=== PATIENT | male | born 1945 | race Caucasian/White ===

== ENCOUNTER → 2017-12-23 | Outpatient (CLI) | payer MEDICARE ==
[~2017-12-23] MED LIST: ASPI1TAB57 PO; DIOV80TA4 PO; LEXA20TA PO; LIPI40TA PO; METF500T PO; METO-309 PO; TAMS5CAP PO; TRAM50TA PO
== END ==
LOC: CPRE 09:53
PROVIDERS: ATTEND Orthopaedic Surgery
DX: M17.11 Unilateral primary osteoarthritis, right knee (principal)

== ENCOUNTER 2018-01-01 08:28 | Inpatient (IN) | payer MEDICARE ==
[~2018-01-01] VITALS: Ht 177.8 cm; Wt 107.6 kg
[~2018-01-01 08:28] MED LIST changes: -TRAM50TA PO
[2018-01-01] MEDS ORDERED: DEXAMETHASONE SOD PHOS 20 MG/5 ML VIAL IV PUSH ONE (09:00)
[2018-01-01] MEDS ORDERED: SODIUM CHLORID 0.9% 500 ML IV PRN (09:15)
[2018-01-01] MEDS ORDERED: VANCOMYCIN 1 GM/200 ML PREMIX IV SCH (09:15)
[2018-01-01] MEDS ORDERED: POVIDONE IODINE 5% (ANTISEPSIS KIT) 4 APPLICATIONS EACH NARE PRN (09:15)
[2018-01-01] MEDS ORDERED: SODIUM CHLORIDE 0.9% IV SCH ×2 (09:15→14:45)
[2018-01-01] MEDS ORDERED: LACTATED RINGER'S 1000 ML IV PRN (09:15)
[2018-01-01] MEDS ORDERED: INSULIN HUMAN REGULAR 1,000 UNITS/10 ML VIAL SQ PRN (09:15)
[2018-01-01] MEDS ORDERED: POVIDONE IODINE 7.5% SCRUB 118 ML BOTTLE TOPICAL SCH (09:15)
[2018-01-01] MEDS ORDERED: CHLORHEXIDINE GLUCONATE 4% SOLN 120 ML BTL TOPICAL SCH (09:15)
[2018-01-01] MEDS ORDERED: METOPROLOL TARTRATE 25 MG TAB PO PRN (09:15)
[2018-01-01] MEDS ORDERED: CHLORHEXIDINE GLUCONATE 2 % 1 PACK (2 CLOTHS) TOPICAL PRN (09:15)
[2018-01-01] MEDS ORDERED: ceFAZolin 2 GM in NS 100 ML IV SCH (09:15)
[2018-01-01] MEDS ORDERED: TRANEXAMIC ACID IV SCH ×2 (09:15→14:45)
[2018-01-01] MEDS ORDERED: ROPIVACAINE PERI-ARTICULAR INJECTION. P-ARTICULR SCH ×5 (09:15)
[2018-01-01] MEDS ORDERED: ceFAZolin 2 GM PREMIX 50 ML ONE (09:38)
[2018-01-01 10:00] VITALS: PULSE 62
[2018-01-01] MEDS ORDERED: MIDAZOLAM HCL 5 MG/5 ML VIAL ONE (10:19)
[2018-01-01] MEDS ORDERED: FAMOTIDINE 20 MG/2 ML VIAL ONE (11:10)
[2018-01-01] MEDS ORDERED: ceFAZolin INJ 1,000 MG VIAL ONE (11:10)
[2018-01-01] MEDS ORDERED: ACETAMINOPHEN 1000 MG/100 ML 100 ML IV ONE (11:10)
[2018-01-01] MEDS ORDERED: GENTAMICIN SULFATE 80 MG/2 ML VIAL ONE (11:11)
[2018-01-01] MEDS ORDERED: GLYCOPYRROLATE 1 MG/5 ML SYRINGE IV PUSH ONE (12:00)
[2018-01-01] MEDS ORDERED: ONDANSETRON HCL 4 MG/2 ML VIAL IV ONE (12:00)
[2018-01-01] MEDS ORDERED: PROPOFOL 200 MG/20 ML AMP IV ONE (12:00)
[2018-01-01] MEDS ORDERED: ceFAZolin INJ 1,000 MG VIAL IV ONE (12:00)
[2018-01-01] MEDS ORDERED: NEOSTIGMINE 5 MG/5 ML SYRINGE IV PUSH ONE (12:00)
[2018-01-01] MEDS ORDERED: ROCURONIUM INJ 50 MG/5 ML SYRINGE IV PUSH ONE (12:00)
[2018-01-01] MEDS ORDERED: ePHEDrine/NS 25 MG/5 ML SYRINGE IV ONE (12:00)
[2018-01-01] MEDS ORDERED: LACTATED RINGER'S 1000 ML INJ 1,000 ML IV ONE (12:00)
[2018-01-01] MEDS ORDERED: PHENYLEPH/NS 1000 MCG/10 ML SYR IV ONE (12:00)
[2018-01-01] MEDS ORDERED: LIDOCAINE HCL 1% PF 5 ML SYRINGE OTHER ONE (12:00)
--- NOTE | 2018-01-01 13:25 | PD.OP ---
cc: Jerardo Judge MD Operative Report Date of Surgery: January 01, 2018 Preoperative Diagnosis: Right knee severe arthritis Postoperative Diagnosis: Same Procedure: Right total knee arthroplasty Anesthesia: Adductor canal block and general Surgeon: Jerardo Judge Chief Of Hospital Medicine(s): AIDA Hoffmann The surgical procedure was assisted by my Advanced Registered Nurse Practitioner. My LOW VOLTAGE TECHNICIAN presence was necessary throughout this case for the manipulation and positioning of the surgical extremity. My LOW VOLTAGE TECHNICIAN was assisting me throughout the duration of this procedure. The skill set of an Advance Registered Nurse Practitioner was medically necessary to complete this procedure. During the surgical case, the certified surgical assistant was working at the back table and the Advance Registered Nurse Practitioner was directly assisting me. Operation and Findings: IMPLANTS: DePuy Attune: Patella: size 38. Femur, posterior stabilized size 8. Tibia, rotating platform size 7. Tibial insert, rotating platform, posterior stabilized size 5 mm thickness. ESTIMATED BLOOD LOSS: 250 cc TOURNIQUET TIME: 40 minutes at 250 mmHg pressure. JUSTIFICATION FOR PROCEDURE: The patient has end-stage osteoarthritis to the knee. There is an attached conservative measures pathway form in the chart that describes the nonoperative measures that were undertaken prior to consideration of surgical management. The patient understood the risks and benefits of surgical management. See my office notes for further details PROCEDURE: The patient was brought back to the operative theatre. Adequate anesthesia was obtained. The patient received intravenous vancomycin and Ancef. The lower extremity was prepped and draped in the usual sterile fashion.The leg was exsanguinated, the tourniquet was raised. A standard anterior incision was performed followed by medial parapatellar arthrotomy was performed. End-stage arthritis was identified. Osteotomy of the patella was performed. We drilled holes for the patella. We trialed the patella component. We placed an intramedullary guide into the distal femur. We ultimately resected 13 mm off of the distal femur in 5 degrees of valgus. The remnants of the ACL and PCL were resected. Osteotomy of the proximal tibia was performed, resecting 5 mm off of the medial side. This was done with 3 degrees of posterior slope using an extramedullary guide. The distal end of the guide was placed in the mid aspect of the ankle. The femur was sized, and four chamfer cuts were completed in 3 of external rotation. We then cut the central box in the distal femur to replace the PCL. We resected the remnants of the menisci and removed osteophytes off of the femur and tibia. We then trialed the knee. We punched the tibia for the keel, and then used standard technique to cement in components. Excess cement was removed. We trialed the knee again and the final polyethylene thickness was chosen to provide extension to 0 degrees, and flexion of 140 degrees to gravity. The ligaments were appropriately balanced. Lateral release was not necessary to obtain excellent patellofemoral tracking. The tourniquet was released and adequate hemostasis was obtained. An intra- articular injection of a ropivacaine cocktail was injected. The posterior knee was inspected for excess cement, which was removed. The final polyethylene was put into position after thorough irrigation. We then closed deep fascia with a #2 Stratafix followed by skin with 2-0 Vicryl followed by Dermabond dressing. Postop plan is to weight-bear as tolerated. DVT prophylaxis will be performed with Zarina, KAPIL butt, early mobilization, and Lovenox followed by aspirin. Jerardo Judge MD January 01, 2018 13:25
[2018-01-01] MEDS ORDERED: diphenhydrAMINE HCL 50 MG/ML VIAL IV PUSH PRN (13:30)
[2018-01-01] MEDS ORDERED: ONDANSETRON ODT 4 MG TAB PO PRN (13:30)
[2018-01-01] MEDS ORDERED: MORPHINE SULFATE 4 MG/ML INJ IV PUSH PRN (13:30)
[2018-01-01] MEDS ORDERED: Post-op Orders (for Pharmacy) XX ONE (13:30)
[2018-01-01] MEDS ORDERED: MAGNESIUM HYDROXIDE SUSP 30 ML CUP PO PRN (13:30)
[2018-01-01] MEDS ORDERED: NALOXONE HCL 0.4 MG/ML AMP IV PUSH PRN (13:30)
[2018-01-01] MEDS ORDERED: ALUMINUM/MAGNESIUM/SIMETH 30 ML CUP PO PRN (13:30)
[2018-01-01] MEDS ORDERED: BISACODYL 10 MG SUPP RECTAL PRN (13:30)
[2018-01-01] MEDS ORDERED: ACETAMINOPHEN/HYDROcodone 325 MG/5 MG TAB PO PRN (13:30)
[2018-01-01] MEDS ORDERED: DO NOT ADM ANY ANTICOAGULANT DRUGS PRN (13:45)
[2018-01-01] MEDS ORDERED: *morphine SULFATE 8 MG/ML PERIprocedure ONLY ONE (14:08)
[2018-01-01] MEDS ORDERED: MIDAZOLAM HCL 2 MG/2 ML VIAL ONE (14:09)
[2018-01-01] MEDS ORDERED: PILL SPLITTER OTHER PRN (14:15)
[2018-01-01] MEDS ORDERED: *morphine SULFATE 10 MG/ML PERIprocedure ONLY ONE (14:33)
--- NOTE | 2018-01-01 14:41 | HHI.DCPOC ---
Discharge Care Plan Diagnosis: (1) Primary localized osteoarthrosis, lower leg (2) Status post total knee replacement, right Your Health Problems Are: Difficulty with ADL Goals to Promote Your Health * To prevent worsening of your condition and complications * To maintain your health at the optimal level Directions to Meet Your Goals Take your medications as prescribed Follow your dietary instruction Follow activity as directed Keep your appointments as scheduled Take your immunizations and boosters as scheduled If your symptoms worsen call your PCP, if no PCP go to Urgent Care Center or Emergency Room Smoking is Dangerous to Your Health. Avoid second hand smoke Call the 24-hour hour crisis hotline for domestic abuse at Neri Mariee January 01, 2018 14:41
--- NOTE | 2018-01-01 14:42 | HHI.FF ---
Face to Face Verification Diagnosis: (1) Primary localized osteoarthrosis, lower leg (2) Status post total knee replacement, right Physical Therapy Gait training, Transfer training, bed to chair Knee: Total knee Right LE Weight Bearing: WB as tolerated Right LE Range of Motion: Active ROM Nursing Nursing: Yonis garcia Dressing Changes: Do not change dressing Additional Instructions First dressing change in the office. I have seen patient Thanh Hancock on 01/01/18. My clinical findings support the need for the requested home health care services because: Limited ability to care for self High risk of falls I certify that my clinical findings support that this patient is homebound because: Post-op weakness Unsteady gait/balance Neri Mariee January 01, 2018 14:42
[2018-01-01] MEDS ORDERED: CPMMACHINE (14:43)
[2018-01-01] MEDS ORDERED: WALKER WHEELS/F1 MIS (14:43)
[2018-01-01] MEDS ORDERED: COMMODE 3-IN-11 MIS (14:43)
--- NOTE | 2018-01-01 14:53 | RADRPT ---
EXAM DATE/TIME: 01/01/2018 14:32 [facility] COMPARISON: No previous studies available for comparison. INDICATIONS : Post op right knee surgery MEDICAL HISTORY : None. SURGICAL HISTORY : None. ENCOUNTER: Initial ACUITY: 1 day PAIN SCORE: 10/10 LOCATION: Right knee FINDINGS: AP and lateral views of the knee following arthroplasty reveals a prosthesis in anatomic alignment. F racture is not appreciated. Surgical drain is evident CONCLUSION: Status post total knee arthroplasty. Jarred Ross MD FACR Board Certified Radiologist. This report was verified electronically.
[2018-01-01] MEDS: SODIUM CHLOR 0.9% 1000 ML INJ 1,000 ML IV SCH (15:00)
--- NOTE | 2018-01-01 16:10 | PD.CONS ---
HPI Service [facility] Consult Requested By Dr. Judge Reason for Consult Opinion recommendation treatment of patient's hypertension and diabetes mellitus type 2 Primary Care Physician Heidi Buckner MD Diagnoses: History of Present Illness 72-year-old white male with a history of osteoarthritis was had long-term pain with right knee and failed conservative treatment. He electively underwent a right total knee arthroplasty today with Dr. Judge. He states his pain is currently controlled at this time. He denies any history of blood in the stool black tarry stools. He does at times occasionally have constipation. He is not complaining of any nausea or vomiting at this time. Review of Systems Constitutional: DENIES: Fatigue, Fever, Chills, Change in appetite Endocrine: DENIES: Heat/cold intolerance Eyes: DENIES: Blurred vision, Eye pain, Vision loss Ears, nose, mouth, throat: DENIES: Hearing loss, Nasal discharge, Throat pain, Ear Pain, Sinus Pain Respiratory: DENIES: Cough, Shortness of breath Cardiovascular: DENIES: Chest pain, Palpitations, Dyspnea on Exertion, Lower Extremity Edema Gastrointestinal: DENIES: Abdominal pain, Black stools, Bloody stools, Constipation, Diarrhea, Nausea, Vomiting Musculoskeletal: COMPLAINS OF: Joint pain (Bilateral knee pain in the past), DENIES: Muscle aches, Stiffness Integumentary: DENIES: Rash Hematologic/lymphatic: DENIES: Bruising, Lymphadenopathy Immunologic/allergic: DENIES: Eczema Neurologic: DENIES: Headache, Localized weakness, Paresthesias Psychiatric: DENIES: Anxiety, Depression, Suicidal Ideation Past Family Social History Allergies: Coded Allergies: albuterol (Verified Allergy, Severe, CHEST ON FIRE, BLISTERS IN MOUTH, 12/23) Past Medical History Anxiety Osteoarthritis COPD Diabetes mellitus type 2 Bladder cancer Past Surgical History Previous right knee arthroscopic surgery For previous left knee replacement and revision along with left knee arthroscopic surgery Left ear mastectomy reconstruction Septum repair Laminectomy Reported Medications Aspirin 81 mg p.o. daily Lipitor 40 minutes p.o. nightly Lexapro 20 mg p.o. daily Metformin 500 minutes p.o. daily Lopressor 75 mg p.o. twice daily Flomax 0.4 mg p.o. nightly Diovan 80 mg p.o. daily Family History Mom had rupture aorta Physical Exam Vital Signs Vital Signs Date Time Temp Pulse Resp B/P (MAP) Pulse Ox O2 Delivery O2 Flow Rate FiO2 01/01/18 15:08 Nasal Cannula 2.00 01/01/18 15:00 97.6 62 16 141/79 (99) 96 Nasal Cannula 2 01/01/18 14:45 69 16 139/78 (98) 95 Nasal Cannula 2 01/01/18 14:38 15 01/01/18 14:30 70 15 145/75 (98) 97 Nasal Cannula 3 01/01/18 14:15 76 15 143/74 (97) 98 Nasal Cannula 4 01/01/18 14:13 15 01/01/18 14:00 97.9 81 23 148/76 (100) 95 Nasal Cannula 4 01/01/18 11:19 55 19 163/77 (105) 100 01/01/18 11:07 57 20 163/77 (105) 99 01/01/18 10:49 55 18 140/80 (100) 99 01/01/18 10:00 62 01/01/18 09:38 98 Nasal Cannula 2 01/01/18 09:25 97.1 58 16 165/85 (111) 100 Physical Exam GENERAL: This is a well-nourished, well-developed patient, in no apparent distress. SKIN: No rashes, ecchymoses or lesions. Cool and dry. HEAD: Atraumatic. Normocephalic. No temporal or scalp tenderness. EYES: Pupils equal round and reactive. Extraocular motions intact. No scleral icterus. No injection or drainage. ENT: Nose without bleeding, purulent drainage or septal hematoma. Throat without erythema, tonsillar hypertrophy or exudate. Uvula midline. Airway patent. NECK: Trachea midline. No JVD or lymphadenopathy. Supple, nontender, no meningeal signs. CARDIOVASCULAR: Regular rate and rhythm RESPIRATORY: Clear to auscultation. Breath sounds equal bilaterally. No wheezes , rales, or rhonchi. GASTROINTESTINAL: Abdomen soft, non-tender, nondistended. No hepato-splenomegaly , or palpable masses. No guarding. MUSCULOSKELETAL: Extremities without clubbing, cyanosis, or edema. Left SCD right knee immobilizer bandage clean dry and intact NEUROLOGICAL: Awake and alert. Cranial nerves II through XII intact. Motor and sensory grossly within normal limits. Normal speech. Assessment and Plan Assessment and Plan 1. Status post right total knee arthroplasty continue postoperative care, pain control, physical therapy per orthopedic surgery Dr. Judge 2. Diabetes mellitus type 2resume metformin continue Accu-Cheks with sliding scale insulin 3. Hypertension history chronic essential continue with Diovan and Lopressor, further recommendation based on blood pressure trends 4. History of anxiety -continue with Lexapro 5. History of COPD no acute exacerbation, encourage incentive spirometry use, atrovent nebs as needed for any shortness of breath 6. DVT prophylaxis risks and benefits of anticoagulation discussed with patient today. Initiate Lovenox per orthopedic surgery Elida Stout MD January 01, 2018 16:10
[2018-01-01] MEDS ORDERED: RESP: IPRATROPIUM 0.5 MG/2.5 ML NEB NEB PRN (16:15)
[2018-01-01] MEDS ORDERED: DEXTROSE 50% IN WATER 50 ML VIAL(D50) IV PUSH PRN (16:15)
[2018-01-01] MEDS ORDERED: GLUCAGON 1 MG/ML VIAL OTHER PRN (16:15)
[2018-01-01] MEDS ORDERED: ENALAPRILAT 1.25 MG/ML VIAL IV PUSH PRN (16:15)
[2018-01-01] MEDS: INSULIN ASPART SUPPLEMENTAL SCALE SQ SCH ×2 (17:34→21:03)
[2018-01-01] MEDS: METOPROLOL TARTRATE 50 MG TAB PO SCH (19:51)
[2018-01-01] MEDS: ACETAMINOPHEN/HYDROcodone 325 MG/5 MG TAB PO PRN (19:51)
[2018-01-01 20:00] VITALS: BP 123/69; PULSE 90; RESP 17; TEMP 97.3; O2SAT 95
[2018-01-01] MEDS ORDERED: ATORVASTATIN 40 MG TAB PO SCH (21:00)
[2018-01-01] MEDS ORDERED: ZOLPIDEM TARTRATE 5 MG TAB PO PRN (21:00)
[2018-01-01] MEDS ORDERED: TAMSULOSIN HCL 0.4 MG CAP PO SCH (21:00)
[2018-01-02 00:01] VITALS: BP 144/63; PULSE 92; RESP 18; TEMP 98.4; O2SAT 94
[2018-01-02] MEDS: SODIUM CHLOR 0.9% 1000 ML INJ 1,000 ML IV SCH (03:13)
[2018-01-02 04:00] VITALS: BP 121/61; PULSE 75; RESP 18; TEMP 98.6; O2SAT 93
[2018-01-02 04:04] LABS: HEMATOCRIT 37.5 % (39.0-51.0); HEMOGLOBIN 12.8 GM/DL (13.0-17.0); MEAN CELL VOLUME 88.9 FL (80.0-100.0); MEAN CORPUSCULAR HEMOGLOBIN 30.3 PG (27.0-34.0); MEAN CORPUSCULAR HGB CONC 34.1 % (32.0-36.0); MEAN PLATELET VOLUME 8.9 FL (7.0-11.0); PLATELET COUNT 217 TH/MM3 (150-450); RED BLOOD COUNT 4.21 MIL/MM3 (4.50-5.90); RED CELL DISTRIBUTION WIDTH 14.1 % (11.6-17.2); WHITE BLOOD COUNT 13.9 TH/MM3 (4.0-11.0)
[2018-01-02] MEDS: ACETAMINOPHEN/HYDROcodone 325 MG/5 MG TAB PO PRN ×2 (05:05→08:51)
[2018-01-02 07:29] VITALS: BP 123/62; PULSE 79; RESP 18; TEMP 98.4; O2SAT 95
[2018-01-02] MEDS ORDERED: DEXAMETHASONE SOD PHOS 20 MG/5 ML VIAL IV ONE (07:45)
[2018-01-02] MEDS: INSULIN ASPART SUPPLEMENTAL SCALE SQ SCH (08:00)
[2018-01-02] MEDS: METOPROLOL TARTRATE 50 MG TAB PO SCH (08:51)
[2018-01-02] MEDS ORDERED: ESCITALOPRAM OXALATE 20 MG TAB PO SCH (09:00)
[2018-01-02] MEDS ORDERED: VALSARTAN 80 MG TAB PO SCH (09:00)
[2018-01-02] MEDS ORDERED: metFORMIN HCL 500 MG TAB PO SCH (09:00)
[2018-01-02 09:14] VITALS: O2SAT 96
[2018-01-02] MEDS ORDERED: ENOXAPARIN SODIUM 40 MG/0.4 ML SYRINGE SQ SCH (13:00)
--- NOTE | 2018-01-02 18:39 | PD.ORT.PN ---
Subjective Post Op Day #: 1 Subjective Remarks Patient requested to be discharged home with home health prior to being seen by or AIDA Objective Vitals Vital Signs Date Time Temp Pulse Resp B/P (MAP) Pulse Ox O2 Delivery O2 Flow Rate FiO2 01/02/18 09:14 96 21 01/02/18 07:29 98.4 79 18 123/62 (82) 95 01/02/18 04:00 98.6 75 18 121/61 (81) 93 01/02/18 00:01 98.4 92 18 144/63 (90) 94 01/01/18 20:00 97.3 90 17 123/69 (87) 95 01/01/18 19:55 Nasal Cannula 2.00 I/O 01/01/18 01/01/18 01/01/18 01/02/18 01/02/18 01/02/18 07:00 15:00 23:00 07:00 15:00 23:00 Intake Total 1700 ml 420 ml Output Total 600 ml 200 ml Balance 1100 ml 220 ml Intake Oral 420 ml Other 1700 ml Output Urine Total 350 ml 200 ml Estimated Blood Loss 250 ml # Voids 3 1 # Bowel Movements 0 Result Diagram: 01/02/18 0335 Assessment & Plan Assessment and Plan POD #1: Right TKA 1. WBAT RLE 2. Lovenox followed by ASA for DVT prophylaxis (Reviewed by RN) 3. Ice to the right knee PRN 4. Stable for discharge home with home health today. This was discussed with the nurse (Sharron Salguero). Patient was examined and found to have no concerns. Labs reviewed and dressing C/D/I 5. F/U in the office with Dr. Judge or Carrillo PARRA as previously scheduled. Neri Mariee January 02, 2018 18:39
[2018-01-02] MEDS ORDERED: DOCUSATE SODIUM 100 MG CAP PO SCH (21:00)
[2018-01-02] MEDS ORDERED: MULTIVITAMINS/MINERALS THERAPEUTIC TAB PO SCH (21:00)
== END 2018-01-02 10:52 | disposition home health service (06) | DRG 470 ==
LOC: HSDI 08:28 → EDUNIT# 11:30 → N06A 15:12
PROVIDERS: ADMIT Orthopaedic Surgery; ATTEND Orthopaedic Surgery
PROC: 0SRC0J9 Replacement of Right Knee Joint with Synthetic Substitute, Cemented, Open Approach (ICD-10-PCS; principal; 2018-01-01 11:30)
DX: M17.11 Unilateral primary osteoarthritis, right knee (principal); J44.9 Chronic obstructive pulmonary disease, unspecified; E11.9 Type 2 diabetes mellitus without complications; Z79.84 Long term (current) use of oral hypoglycemic drugs; I10 Essential (primary) hypertension; F41.9 Anxiety disorder, unspecified; F17.210 Nicotine dependence, cigarettes, uncomplicated; I25.10 Atherosclerotic heart disease of native coronary artery without angina pectoris; Z95.5 Presence of coronary angioplasty implant and graft; I25.2 Old myocardial infarction; Z85.51 Personal history of malignant neoplasm of bladder
CPT/HCPCS: 73560; 82948; 85027; 86850; 86900; 86901; 94150; C1776; J0131; J0690; J0735; J1100; J1580; J1815; J1885; J2250; J2270; J2370; J2405; J2710; J2795; J3010; J3370; J7030; J7120; L1830